=== PATIENT | female | born 1950 | race Caucasian/White ===

== ENCOUNTER → 2017-03-24 | Outpatient (CLI) | payer MEDICARE, BC ==
[~2017-03-24] MED LIST: ALEVE220 M1 PO; ALEVE220 MG PO; BETAPACE (GENER80 MG PO; ECOTRIN325 MG PO; LEVOTHROID (SY50 MCG PO; LIPITOR80 MG PO; NORCO 5-325 TA1 EACH PO; PLAVIX75 MG PO; PRILOSEC20 MG PO
--- NOTE | ~2017-03-24 | PUL ---
PATIENT'S NAME: [facility] AGE: 67 Y [address] ROOM: [place] [id number] LOCATION: [facility] ADMIT DATE: 03/24/2017 Pulmonary DISCHARGE DATE: FAMILY PHYSICIAN: Smita Patterson MD ATTENDING PHYSICIAN: AGNIESZKA RODRIGUEZ NAME OF PROCEDURE: Pulmonary Function Test DATE OF PROCEDURE: March 24, 2017 TECH: Lena Vazquez RRT REASON FOR TEST: COPD RESULTS: 1. Spirometry FVC was 3.03 liters which is 104% of predicted and normal. FEV1 was 2.09 liters which is 95% of predicted and normal and FEV1/FVC was 69% which is normal for patient's demographics. After bronchodilator administration FVC decreased to 3.01 liters and FEV1 increased to 2.25 liters which is an 8% increase. FEV1/FVC was 75%. 2. DLCO was 19.3 with an adjusted DLCO of 20.1 which is 118% of predicted and normal. 3. Total lung capacity was 4.71 liters which is 102% of predicted and normal and residual volume was 1.6 liters which is 91% of predicted and normal. PHYSICIAN INTERPRETATION: The patient has no airflow limitation and no significant bronchodilator response. Her diffusion capacity is normal. There is no evidence of restrictive lung disease. MD NIKO ROTH/siena /[id number] dtt: 03/26/17 1513 MICHAEL RADU F dtd: 03/25/17 1103
== END | disposition disaster alternative care site (69) ==
LOC: GRTH 12:36
DX: R06.09 Other forms of dyspnea (principal)

== ENCOUNTER → 2017-04-07 | Outpatient (CLI) | payer MEDICARE, BC ==
--- NOTE | ~2017-04-07 | ESTC ---
Cardiac Perfusion Imaging Demographics Patient Name ADELINE Long Gender Female Patient Number [id number] Race Visit Number [id number] [place] [id number] Room Number Accession Number [id number] Height 63 inches Date of 1950 Weight 126 pounds Interpreting Bennie Yi MD Date of study 04/07/2017 Physician Supervising /MAXIMILIAN Bell NM Technologist Daryl Cheema APRN Ordering Physician Bennie Yi MD Stress electrical engineering technician Stress ECG Reading Edis Bell Nurse Anais Frias Physician ALICIA RN Propjhonny Gonzalez RNcoffee shop aide Admit Source:Other. Procedure Type: Nuclear Stress Test:Pharmacological, Lexiscan, Cardiolite Stress Test Procedure Start time: 04/07/2017 08:00 Indications: Shortness of breath. Risk Factors The patient risk factors include:prior PCI on 09/08/2014;hypercholesterolemia and dyslipidemia. Conclusions Summary Cardiolite SPECT images demonstrates homogenous uptake of radioactive tracer. NO evidence of inducible reversible defect and no evidence of underlying fixed defect. TID is mildly increased at 1.14 Gated images demonstrate normal left ventricular function without inducible wall motion abnormalities. LVEF is 77% Stress Protocols Resting ECG 1:1 Apaced. with intrinsic rhythm Sinus rhythm Resting HR:70 bpm Resting BP:151/70 mmHg Pre-stress physical exam: Alert, lungs CTA, CV regular Stress Protocol:Pharmacologic Peak HR:130 bpm HR response: Appropriate Peak BP:137/39 mmHg BP response: Appropriate Predicted HR: 151 bpm HR/BP product:25921 % of predicted HR: 86 Reason for termination:Infusion complete ECG Findings Sinus tachycardia. Occasional A paced beats. ST depression II, AVF, V4, V5, V6 Arrhythmias None Symptoms Chest tightness. Shortness of breath. Nausea. Weakness Stress Interpretation Appropriate hemodynamic response to Lexiscan. ST depressionL : significant ST-T wave changes with Lexiscan. ECG portion is postitive for ischemia by diagnostic criteria. Await Sestimebi images for further evaluation of ischemia. Symptoms resolved with in 2 minutes into recover. Stress supervision and interpretation provided by Amelie Randhawa APRN . Imaging Results Summed scores - Summed stress score: 19 - Summed rest score: 18 - Summed difference score: 1 Stress ejection Ejection fraction:77 % EDV :78 ml ESV :18 ml Stroke volume :60 ml LV mass :104 gr Imaging Protocols Rest Stress Isotope:Tc99m Sestamibi IV Isotope: Tc99m Sestamibi IV Isotope dose:8.7 mCi Isotope dose:25.3 mCi Date:04/07/2017 07:17 Date:04/07/2017 09:23 Technique: SPECT Technique: Gated Supine SPECT Supine Scan Time:45-60 minutes post Scan Time:45-60 minutes post injection injection Procedure Medications - Regadenoson (Lexiscan) 0.4 mg IV over 10-15 sec. I.V. 0.4 mg. Medical History Admission Data Admission date: 04/07/2017 Admission Time: 06:53 Hospital Status: Outpatient. Signatures dtt: Kd Avery (cardio) dtd: 04/07/17 0800 Physician Self Edit
== END | disposition disaster alternative care site (69) ==
LOC: GRAD 06:53
DX: R06.02 Shortness of breath (principal); E78.00 Pure hypercholesterolemia, unspecified; E78.5 Hyperlipidemia, unspecified
CPT/HCPCS: A9500; J2785

== ENCOUNTER → 2017-05-01 | Day surgery (SDC) | payer MEDICARE, BC ==
[~2017-05-01] VITALS: Ht 160 cm; Wt 58.3 kg
== END ==
LOC: GPOC 04-25 15:00 → GEND 07:45
PROC: 0DB68ZX Excision of Stomach, Via Natural or Artificial Opening Endoscopic, Diagnostic (ICD-10-PCS; principal; 2017-05-01)
DX: K31.9 Disease of stomach and duodenum, unspecified (principal); K21.0 Gastro-esophageal reflux disease with esophagitis; I10 Essential (primary) hypertension; M19.90 Unspecified osteoarthritis, unspecified site; I25.2 Old myocardial infarction; Z95.5 Presence of coronary angioplasty implant and graft; I25.10 Atherosclerotic heart disease of native coronary artery without angina pectoris; Z79.01 Long term (current) use of anticoagulants; Z79.899 Other long term (current) drug therapy; Z79.82 Long term (current) use of aspirin; Z98.890 Other specified postprocedural states; Z85.3 Personal history of malignant neoplasm of breast; Z98.1 Arthrodesis status; Z90.710 Acquired absence of both cervix and uterus
CPT/HCPCS: J2001; J7030

== ENCOUNTER → 2017-05-15 | Outpatient (CLI) | payer MEDICARE, BC | END | disposition disaster alternative care site (69) | LOC: GBCOE 12:41 | DX: Z12.31 Encounter for screening mammogram for malignant neoplasm of breast (principal); Z85.3 Personal history of malignant neoplasm of breast; Z90.12 Acquired absence of left breast and nipple | CPT/HCPCS: G0202 ==